=== PATIENT | male | born 1935 | race Caucasian/White ===

== ENCOUNTER 2016-08-30 19:02 | Outpatient (CLI) | payer MEDICARE | END 2016-08-30 19:03 | disposition critical access hospital (66) | DX: S01.01XA Laceration without foreign body of scalp, initial encounter (principal); W19.XXXA Unspecified fall, initial encounter | CPT/HCPCS: A0425; A0429 ==

== ENCOUNTER 2016-08-30 19:33 | Emergency (ER) | payer MEDICARE | END 2016-08-30 21:16 | disposition home or self-care (01) | DX: S01.01XA Laceration without foreign body of scalp, initial encounter (principal); W01.0XXA Fall on same level from slipping, tripping and stumbling without subsequent striking against object, initial encounter; Y92.019 Unspecified place in single-family (private) house as the place of occurrence of the external cause; F03.90 Unspecified dementia, unspecified severity, without behavioral disturbance, psychotic disturbance, mood disturbance, and anxiety; E78.00 Pure hypercholesterolemia, unspecified; M10.9 Gout, unspecified ==

== ENCOUNTER 2016-09-20 11:18 | Emergency (ER) | payer MEDICARE ==
[2016-09-20] MEDS ORDERED: CLINDAMYCIN 600 MG/50 ML 50 ML IV ONE ×2 (11:42→11:45)
[2016-09-20] MEDS ORDERED: SODIUM CHLORIDE 0.9% 1,000 ML IV ONE (12:40)
[2016-09-20] MEDS ORDERED: IOPAMIDOL-300 50 ML VIAL IVP ONE (13:10)
[2016-09-20] MEDS ORDERED: DEXAMETHASONE 10 MG/ML VIAL IVP STA (14:40)
[2016-09-20] MEDS ORDERED: DEXAMETHASONE 10 MG/ML VIAL ONE (14:44)
[2016-09-20] MEDS ORDERED: LIDOCAINE 1%-EPI 1:100000 20 ML MDV ONE (15:03)
== END 2016-09-20 15:30 | disposition home or self-care (01) ==
DX: K04.7 Periapical abscess without sinus (principal); L03.211 Cellulitis of face; F03.90 Unspecified dementia, unspecified severity, without behavioral disturbance, psychotic disturbance, mood disturbance, and anxiety; E78.00 Pure hypercholesterolemia, unspecified
CPT/HCPCS: 36415; 70487; 80048; 96361; 96365; 96375; 99283; 99284; Q9967

== ENCOUNTER 2017-01-25 17:45 | Emergency (ER) | payer MEDICARE ==
[2017-01-25 18:01] VITALS: BP 186/82
--- NOTE | 2017-01-25 19:31 | ED Physician Documentation ---
PD HPI HEAD INJURY - Stated complaint Stated Complaint: LAC ON FACE - Chief complaint Chief Complaint: Laceration - History obtained from History obtained from: Patient - History of Present Illness Mechanism of head injury: Fell (he was out in yard working and came in to house with bleeding around right cheek/eyelid, saying he had fallen. says he is acting normal otherwise, with memory problem c/w his dementia. He was wearing glasses and the lac is in shape of the glass rim.) Where head injury occurred: Home Timing - onset: Today Location of injury: Right, Front (around eye) Associated symptoms: No: LOC, AMS, Nausea / vomiting, Neck pain Symptoms worsen with: Palpation Contributing factors: No: Anticoagulated, Intoxicated Similar symptoms before: Has not had sx before Recently seen: Not recently seen Review of Systems Eyes: denies: Loss of vision, Decreased vision Cardiac: denies: Chest pain / pressure GI: denies: Abdominal Pain Neurologic: denies: Altered mental status, Headache, LOC PD PAST MEDICAL HISTORY - Past Medical History Cardiovascular: High cholesterol Neuro: Dementia Psych: Depression Musculoskeletal: Gout - Past Surgical History Past Surgical History: Yes Derm: Skin cancer surgery - Present Medications Home Medications: Ambulatory Orders Medication Instructions Recorded Confirmed Allopurinol 100 mg PO DAILY 12/19/15 09/20/16 Atorvastatin [Lipitor] 20 mg ORAL DAILY 12/19/15 09/20/16 Fluoxetine HCl 10 mg PO DAILY PRN 12/19/15 09/20/16 Sertraline [Zoloft] 25 mg PO DAILY 08/30/16 09/20/16 - Allergies Allergies/Adverse Reactions: Allergies Allergy/AdvReac Type Severity Reaction Status Date / Time No Known Drug Allergies Allergy Verified 01/25/17 18:01 - Social History Does the pt smoke?: No Smoking Status: Never smoker Does the pt drink ETOH?: No Does the pt have substance abuse?: No - Immunizations Immunizations are current?: Yes Immunizations: TDAP current <10years - POLST Patient has POLST: No PD ED PE NORMAL - Vitals Vital signs reviewed: Yes - General General: Alert and oriented X 3, Well developed/nourished - HEENT HEENT: PERRL, EOMI, Pharynx benign, Dentition benign, Other - Neck Neck: Supple, no meningeal sign, No bony TTP, No adenopathy - Cardiac Cardiac: RRR, No murmur - Respiratory Respiratory: Clear bilaterally, Other (nontender) - Abdomen Abdomen: Soft, Non tender - Extremities Extremities: No tenderness to palpate, Normal ROM s pain - Neuro Neuro: Alert and oriented X 3 (poor short term recall), 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, No motor deficit, No sensory deficit, Normal speech Results - Vitals Vitals: Oxygen O2 Source Room air Procedures - Laceration (location) right cheek and eyebrow Length in cm: 3 Wound type: Curved, Into subcut fat, Clean Neurovascular status: Sensory intact, Motor intact Anesthesia: Marcaine 0.5% with epi Wound Preparation: Irrigated copiously NS Skin layer closure: Nylon, Running, Size #-0 - enter number (6) Other: Patient tolerated well, No complications, Neurovascular intact, Dressing applied, Tetanus UTD Complexity: Simple PD MEDICAL DECISION MAKING - ED course Complexity details: considered differential, d/w patient, d/w family (, who felt the patient did not seem like concussive symptoms, just usual dementia. Discussed CT or such, and we shared decision to not do any imaging as seems low probability. ) Departure - Departure Disposition: 01 Home, Self Care Clinical Impression: Facial laceration Qualifiers: Encounter type: initial encounter Qualified Code(s): S01.81XA - Laceration without foreign body of other part of head, initial encounter Fall from slip, trip, or stumble Qualifiers: Encounter type: initial encounter Qualified Code(s): W01.0XXA - Fall on same level from slipping, tripping and stumbling without subsequent striking against object, initial encounter Facial contusion Qualifiers: Encounter type: initial encounter Qualified Code(s): S00.83XA - Contusion of other part of head, initial encounter Condition: Stable Record reviewed to determine appropriate education?: Yes Instructions: ED Laceration Facial Sutr Tape Follow-Up: Oziel Askew [Primary Care Provider] - Comments: It is okay to wash and shower. Clean off the wound twice a day with soap and water, or peroxide and water. Apply some antibiotic ointment to it to keep it moist. Also to watch for signs of infection such as purulence, redness or increasing pain. Return to your primary care or the ER at the specified time for suture removal. Suture removal 7 or 8 days. You can use some ice or cold towels to the eye area to reduce swelling tonight and tomorrow. Recheck if signs of infection. Tylenol if needed for pain. Discharge Date/Time: 01/25/17 21:40
== END 2017-01-25 21:40 | disposition home or self-care (01) ==
LOC: ED 17:45
DX: S01.411A Laceration without foreign body of right cheek and temporomandibular area, initial encounter (principal); S01.111A Laceration without foreign body of right eyelid and periocular area, initial encounter; W01.0XXA Fall on same level from slipping, tripping and stumbling without subsequent striking against object, initial encounter; Y93.H2 Activity, gardening and landscaping; Y92.007 Garden or yard of unspecified non-institutional (private) residence as the place of occurrence of the external cause; F03.90 Unspecified dementia, unspecified severity, without behavioral disturbance, psychotic disturbance, mood disturbance, and anxiety; E78.00 Pure hypercholesterolemia, unspecified
CPT/HCPCS: 12013; 99282; 99283

== ENCOUNTER 2019-03-10 19:04 | Outpatient (CLI) | payer MEDICARE | END 2019-03-10 19:05 | disposition critical access hospital (66) | LOC: EMS 19:04 | PROVIDERS: ATTEND Surgery | DX: R09.89 Other specified symptoms and signs involving the circulatory and respiratory systems (principal); W18.39XA Other fall on same level, initial encounter; Y92.099 Unspecified place in other non-institutional residence as the place of occurrence of the external cause | CPT/HCPCS: A0425; A0427 ==

== ENCOUNTER 2019-03-10 19:28 | Emergency (ER) | payer MEDICARE ==
--- NOTE | 2019-03-10 20:38 | ED Physician Documentation ---
PD HPI HEAD INJURY - Stated complaint Stated Complaint: Fell x 2, hit head - Chief complaint Chief Complaint: General - History obtained from History obtained from: Patient, EMS, Caregiver (Your caregivers at [facility], the patient apparently stumbled and fell a couple of times today striking the side of his head. He did not have any apparent loss of consciousness vomiting or change in mentation but does have a baseline dementia and poor ability to answer questions and so was referred for evaluation. EMS states the patient has confusion but was awake and alert and see more consistent with dementia on route. He did not have any particular complaints.) - History of Present Illness Mechanism of head injury: Fell Timing - onset: Today Location of injury: Left, Front Quality of pain: No: Pain Associated symptoms: No: LOC, Nausea / vomiting, Neck pain Contributing factors: No: Anticoagulated Similar symptoms before: Diagnosis (He does have a history of dementia with poor cognitive interaction. His states he has been more off balance over the last several months with occasional falls.) Recently seen: Not recently seen Review of Systems Unable to obtain: Dementia (But is able to answer yes no to pointed questions about the current symptoms.) Constitutional: denies: Fever Cardiac: denies: Chest pain / pressure Respiratory: denies: Dyspnea, Cough GI: denies: Abdominal Pain, Vomiting, Diarrhea Neurologic: denies: Focal weakness, Numbness, Altered mental status, Headache PD PAST MEDICAL HISTORY - Past Medical History Cardiovascular: High cholesterol Neuro: Dementia Psych: Depression Musculoskeletal: Gout - Past Surgical History Past Surgical History: Yes Derm: Skin cancer surgery - Present Medications Home Medications: Ambulatory Orders Medication Instructions Recorded Confirmed Allopurinol 100 mg PO DAILY 12/19/15 03/10/19 Atorvastatin [Lipitor] 20 mg ORAL DAILY 12/19/15 03/10/19 Sertraline [Zoloft] 25 mg PO DAILY 08/30/16 03/10/19 Mupirocin 1 TOP 03/10/19 traZODone [Desyrel] 50 mg PO ONCE 03/10/19 03/10/19 - Allergies Allergies/Adverse Reactions: Allergies Allergy/AdvReac Type Severity Reaction Status Date / Time mirtazapine [From Remeron] AdvReac Unknown Verified 03/10/19 19:40 - Social History Does the pt smoke?: No Smoking Status: Never smoker Does the pt drink ETOH?: No Does the pt have substance abuse?: No - Immunizations Immunizations are current?: Yes Immunizations: TDAP current <10years - POLST Patient has POLST: No PD ED PE NORMAL - Vitals Vital signs reviewed: Yes - General General: No acute distress, Well developed/nourished, Other (He is alert and conversant. He is able to tell his name and birthdate but not the month. Otherwise questions are answered vaguely.) - HEENT HEENT: Other (Small area of redness noted on the left forehead. There is no obvious tenderness. 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, No motor deficit, No sensory deficit Eye Opening: Spontaneous Motor: Obeys Commands Verbal: Confused GCS Score: 14 Results - Vitals Vitals: Vital Signs - 24 hr 03/10/19 03/10/19 03/10/19 19:36 20:29 21:01 Temperature 36.7 C Heart Rate 77 74 Respiratory 18 18 18 Rate Blood Pressure 114/55 L 131/60 H 129/67 O2 Saturation 100 99 98 03/11/19 03/11/19 00:00 00:59 Temperature 36.8 C Heart Rate 83 72 Respiratory 17 16 Rate Blood Pressure 132/74 H 121/68 O2 Saturation 99 98 Oxygen O2 Source Room air - Labs Labs: Laboratory Tests 03/10/19 03/10/19 21:00 21:00 WBC 6.9 RBC 3.13 L Hgb 9.9 L Hct 30.0 L MCV 95.8 H MCH 31.6 H MCHC 33.0 RDW 13.3 Plt Count 182 MPV 10.6 Neut # (Auto) 4.9 Lymph # (Auto) 1.3 L [place] # (Auto) 0.6 Eos # (Auto) 0.1 Baso # (Auto) 0.0 Absolute Nucleated RBC 0.00 Nucleated RBC % 0.0 Sodium 142 Potassium 3.9 Chloride 103 Carbon Dioxide 27 Anion Gap 12.0 BUN 46 H Creatinine 1.7 H Estimated GFR (MDRD) 39 L Glucose 109 H Calcium 8.8 Magnesium 2.1 Total Bilirubin 0.5 AST 27 ALT 28 Alkaline Phosphatase 43 Total Protein 6.3 L Albumin 3.9 Globulin 2.4 Albumin/Globulin Ratio 1.6 Lipase 40 - Rads (name of study) head and neck CT Radiology: Prelim report reviewed (Age-related cortical atrophy on the head CT and arthritic changes without any fractures noted on the cervical CT.), See rad report PD MEDICAL DECISION MAKING - ED course Complexity details: re-evaluated patient (He is out of his environment. He arrived pleasantly cooperative. However he was uncooperative for attempting the CT scan and department personnel had to hold him down. They did apply restraints as the became more agitated with having to lay still. Subsequently I did give some Ativan to help with the agitation. He was able to be more calmed after that.), considered differential (The patient is awake and alert with dementia related cognitive deficit but no delirium. There is report of injury to the head so we will do a head and neck CT scan. Can check basic labs to ensure electrolytes and such are okay.), d/w patient, d/w family () ED course: He did develop agitation after arrival here and being in the department for a while. It was particularly as he went down to get a CT scan and having him hold still for that. Subsequently he was still able to be alert and conversant. I think he was having dementia related agitation because of the stimulation and did not seem to be metabolic or infectious. He was able to relax with some medication and subsequently the staff release the restraints and he was able to stand and act cooperatively and help himself get dressed at his normal baseline according to his . His feels comfortable that he is acting at his usual level at this point and she is comfortable bringing him back to [facility]. Departure - Departure Disposition: 01 Home, Self Care Clinical Impression: Forehead contusion Qualifiers: Encounter type: initial encounter Qualified Code(s): S00.83XA - Contusion of other part of head, initial encounter Fall from slip, trip, or stumble Qualifiers: Encounter type: initial encounter Qualified Code(s): W01.0XXA - Fall on same level from slipping, tripping and stumbling without subsequent striking against object, initial encounter Dementia Qualifiers: Dementia type: unspecified type Dementia behavioral disturbance: without behavioral disturbance Qualified Code(s): F03.90 - Unspecified dementia without behavioral disturbance Condition: Stable Record reviewed to determine appropriate education?: Yes Follow-Up: Oziel Askew [Primary Care Provider] - Comments: Continue usual medications. Tylenol 500 mg every 6 hours if needed for pains or headache. The CT of the head and neck, and basic blood tests, are normal here. Discharge Date/Time: 03/11/19 01:00
[2019-03-10] MEDS ORDERED: ACETAMINOPHEN 325 MG TABLET PO STA (20:48)
[2019-03-10] MEDS ORDERED: SODIUM CHLORIDE 0.9% 1,000 ML IV ONE (20:50)
[2019-03-10 21:07] LABS: BASOPHILS % (AUTO) 0.4 %; EOSINOPHILS # (AUTO) 0.1 10^3/uL (0.0-0.7); EOSINOPHILS % (AUTO) 1.6 %; HGB - HEMOGLOBIN 9.9 g/dL (14.0-18.0); LYMPHOCYTES # (AUTO) 1.3 10^3/uL (1.5-3.5); LYMPHOCYTES % (AUTO) 18.5 %; MEAN CORPUSCULAR HEMOGLOBIN 31.6 pg (27.0-31.0); MEAN CORPUSCULAR VOLUME 95.8 fL (80.0-94.0); MEAN PLATELET VOLUME 10.6 fL (7.4-11.4); MONOCYTES # (AUTO) 0.6 10^3/uL (0.0-1.0); MONOCYTES % (AUTO) 8.2 %; NEUTROPHILS # (AUTO) 4.9 10^3/uL (1.5-6.6); NEUTROPHILS % (AUTO) 71.2 %; PLT - PLATELET COUNT 182 10^3/uL (130-450); RED BLOOD COUNT 3.13 10^6/uL (4.70-6.10); RED CELL DISTRIBUTION WIDTH 13.3 % (12.0-15.0); WHITE BLOOD COUNT 6.9 x10^3/uL (4.8-10.8)
[2019-03-10 21:18] LABS: ALBUMIN 3.9 g/dL (3.2-5.5); ALBUMIN/GLOBULIN RATIO 1.6 (1.0-2.2); BILIRUBIN,TOTAL 0.5 mg/dL (0.2-1.0); CALCIUM 8.8 mg/dL (8.5-10.3); CREATININE 1.7 mg/dL (0.6-1.2); MAGNESIUM 2.1 mg/dL (1.7-2.8); TOTAL PROTEIN 6.3 g/dL (6.7-8.2)
[2019-03-10] MEDS ORDERED: OLANZapine 10 MG VIAL IM STA (22:20)
[2019-03-10] MEDS ORDERED: WATER FOR INJECTION,STERILE 10 ML ONE (22:32)
[2019-03-10] MEDS ORDERED: OLANZapine 10 MG VIAL IM ONE (22:32)
[2019-03-10] MEDS ORDERED: LORazepam 2 MG/ML VIAL IM STA (23:32)
--- NOTE | 2019-03-10 23:41 | CT Report ---
Reason: fell and struck right forehead Procedure Date: 03/10/2019 Accession Number: [id number] / [id number] Procedure: CT - HEAD WO CPT Code: FULL RESULT: EXAM: CT HEAD EXAM DATE: 03/10/2019 11:08 PM. CLINICAL HISTORY: Fell and struck right forehead. Combative. COMPARISON: None. TECHNIQUE: Multiaxial CT images were obtained from the foramen magnum to the vertex. Reformats: Sagittal and coronal. IV contrast: None. In accordance with CT protocol optimization, one or more of the following dose reduction techniques were utilized for this exam: automated exposure control, adjustment of mA and/or KV based on patient size, or use of iterative reconstructive technique. FINDINGS: Parenchyma: No intraparenchymal hemorrhage. No evidence of mass, midline shift, or CT findings of acute infarction. Sharp-white differentiation is distinct. Diffuse chronic microangiopathic white matter changes are evident. Extraaxial Spaces: Normal for age. No subdural or epidural collections identified. Ventricles: The ventricles and cortical sulci are enlarged, consistent with age-related tissue loss. Sinuses and orbits: Imaged paranasal sinuses, orbits, and mastoids show no significant abnormality. Bones: No evidence of fracture or calvarial defect. Other: None. IMPRESSION: Generalized age-related cortical atrophic changes without evidence of acute intracranial abnormality. RADIA
--- NOTE | 2019-03-10 23:51 | CT Report ---
Reason: fell and struck right forehead Procedure Date: 03/10/2019 Accession Number: [id number] / [id number] Procedure: CT - CERVICAL SPINE WO CPT Code: FULL RESULT: EXAM: CT CERVICAL SPINE WITHOUT CONTRAST. DATE: 03/10/2019 11:29 PM. HISTORY: Fell and struck right forehead. Elderly patient with head trauma, altered. Cannot clear cervical spine. COMPARISONS: HEAD W/O 03/10/2019 11:08 PM. HEAD W/O 08/30/2016 8:17 PM. TECHNIQUE: Thin-section axial images were acquired of the cervical spine without contrast. Post-processing: Coronal and sagittal reformats. Other: None. In accordance with CT protocol optimization, one or more of the following dose reduction techniques were utilized for this exam: automated exposure control, adjustment of mA and/or KV based on patient size, or use of iterative reconstructive technique. FINDINGS: Alignment: No scoliosis or spondylolisthesis. Bones: Mild diffuse motion artifact. No gross fracture or bone lesion. Interspace Levels/Facets: No acute malalignment. Moderate to severe diffuse disk level and facet degenerative changes. Moderate central canal stenosis at C4-C5 and C5-C6 secondary to posterior osteophytosis. Severe bilateral C4-C5 and C7-T1 neural foraminal stenoses secondary to multifactorial degenerative changes. Other: Severe carotid bulb calcifications. The paravertebral and prevertebral soft tissues are unremarkable. The lung apices are clear. IMPRESSION: Moderate to severe cervical spondylosis without gross acute abnormality seen given motion artifact. RADIA
[2019-03-11 01:00] VITALS: BP 121/68
== END 2019-03-11 01:00 | disposition home or self-care (01) ==
LOC: ED 19:28
DX: S00.83XA Contusion of other part of head, initial encounter (principal); W01.10XA Fall on same level from slipping, tripping and stumbling with subsequent striking against unspecified object, initial encounter; Z91.81 History of falling; Y92.129 Unspecified place in nursing home as the place of occurrence of the external cause; F03.90 Unspecified dementia, unspecified severity, without behavioral disturbance, psychotic disturbance, mood disturbance, and anxiety; R45.1 Restlessness and agitation; M47.812 Spondylosis without myelopathy or radiculopathy, cervical region; M48.02 Spinal stenosis, cervical region
CPT/HCPCS: 36415; 70450; 72125; 80053; 83690; 83735; 85025; 96360; 96361; 96372; 99282; 99285; A9270; J2060